=== PATIENT | male | born 1945 | race Caucasian/White ===

== ENCOUNTER 2018-03-03 13:13 | Emergency (ER) | payer MEDICARE, BC ==
[~2018-03-03] VITALS: Ht 180.3 cm; Wt 128.0 kg
[2018-03-03 13:40] LABS: BASOPHILS % (AUTO) 0.1 % (0-1); EOSINOPHILS # (AUTO) 0.3 X10'3 (0-0.9); EOSINOPHILS % (AUTO) 4.6 % (0-6); HEMATOCRIT 40.2 % (42.0-52.0); HEMOGLOBIN 14.1 g/dl (14.0-17.9); LYMPHOCYTES # (AUTO) 0.6 X10'3 (1.1-4.8); LYMPHOCYTES % (AUTO) 9.2 % (21-51); MEAN CORPUSCULAR HEMOGLOBIN 32.4 PG (27.0-31.0); MEAN CORPUSCULAR VOLUME 92.8 FL (78-98); MONOCYTES # (AUTO) 0.4 X10'3 (0-0.9); MONOCYTES % (AUTO) 6.2 % (2-12); NEUTROPHILS # (AUTO) 5.2 X10'3 (1.8-7.7); NEUTROPHILS % (AUTO) 79.9 % (42-75); PLATELET COUNT 216 X10'3 (140-440); RED BLOOD COUNT 4.34 X10'6 (4.70-6.10); RED CELL DISTRIBUTION WIDTH 13.4 % (11.5-14.5); WHITE BLOOD COUNT 6.5 X10'3 (4.5-11.0)
[2018-03-03 13:50] LABS: PARTIAL THROMBOPLASTIN TIME 25 SECONDS (22-32)
[2018-03-03 13:56] LABS: ALANINE AMINOTRANSFERASE 38 U/L (12-78); ALBUMIN 3.4 G/DL (3.4-5.0); ALBUMIN/GLOBULIN RATIO 0.9 (1.1-1.5); ALKALINE PHOSPHATASE 78 IU/L (46-116); ANION GAP 8 (8-16); ASPARTATE AMINO TRANSFERASE 21 U/L (10-37); BILIRUBIN,TOTAL 0.3 MG/DL (0.1-1.0); BLOOD UREA NITROGEN 32 MG/DL (7-18); BUN/CREATININE RATIO 22.5 (5.4-32.0); CALCIUM 9.4 MG/DL (8.5-10.1); CHLORIDE 104 MMOL/L (99-107); CREATININE 1.42 MG/DL (0.60-1.10); GLUCOSE 234 MG/DL (70-104); POTASSIUM 4.3 MMOL/L (3.5-5.1); SODIUM 141 MMOL/L (135-145); TOTAL CARBON DIOXIDE 28.9 MMOL/L (24-32); TOTAL PROTEIN 7.3 G/DL (6.4-8.2); eGFR 49 ML/MIN
[2018-03-03] MEDS ORDERED: AZIT-57 PO (17:56)
[2018-03-03 18:24] VITALS: BP 165/59
== END 2018-03-03 18:26 | disposition home or self-care (01) ==
LOC: ER 13:14
DX: R07.9 Chest pain, unspecified (principal); M25.512 Pain in left shoulder; J18.9 Pneumonia, unspecified organism; I11.0 Hypertensive heart disease with heart failure; I50.9 Heart failure, unspecified; E11.9 Type 2 diabetes mellitus without complications; E78.00 Pure hypercholesterolemia, unspecified; Z88.8 Allergy status to other drugs, medicaments and biological substances
CPT/HCPCS: 36415; 71045; 80053; 84484; 85025; 85610; 85730; 93005; 99285

== ENCOUNTER 2020-05-29 12:52 | Emergency (ER) | payer MEDICARE, BC ==
[~2020-05-29] VITALS: Ht 182.9 cm; Wt 125.0 kg
--- NOTE | 2020-05-29 13:28 | NUR ---
Pt O2 was decreased from 6 L NRB to 4 L NC at 1315. Pt has maintained SpO2 >92% on 4 L with no s/sx of respiratory distress or increased work of breathing. Will continue to monitor Pt.
--- NOTE | 2020-05-29 13:45 | NUR ---
Pt continues to maintain SpO2 >92% on 4 L, no evidence of respiratory distress. O2 decreased to 3 L NC. Will reassess Pt tolerance.
[2020-05-29 13:55] LABS: BASOPHILS # (AUTO) 0.1 X10'3 (0-0.2); BASOPHILS % (AUTO) 1.1 % (0-1); EOSINOPHILS # (AUTO) 0.1 X10'3 (0-0.9); EOSINOPHILS % (AUTO) 1.4 % (0-6); HEMOGLOBIN 8.8 g/dl (14.0-17.9); LYMPHOCYTES # (AUTO) 0.6 X10'3 (1.1-4.8); LYMPHOCYTES % (AUTO) 9.6 % (21-51); MEAN CORPUSCULAR HEMOGLOBIN 30.3 PG (27.0-31.0); MEAN CORPUSCULAR HGB CONC 32.5 g/dL (33.0-36.5); MEAN PLATELET VOLUME 6.4 FL (7.4-10.4); MONOCYTES # (AUTO) 0.8 X10'3 (0-0.9); MONOCYTES % (AUTO) 14.1 % (2-12); NEUTROPHILS # (AUTO) 4.3 X10'3 (1.8-7.7); NEUTROPHILS % (AUTO) 73.8 % (42-75); PLATELET COUNT 457 X10'3 (140-440); RED CELL DISTRIBUTION WIDTH 15.9 % (11.5-14.5); WHITE BLOOD COUNT 5.9 X10'3 (4.5-11.0)
[2020-05-29 14:06] LABS: PARTIAL THROMBOPLASTIN TIME 27 SECONDS (22-32)
[2020-05-29 14:11] LABS: ALANINE AMINOTRANSFERASE 19 U/L (12-78); ALBUMIN 2.6 G/DL (3.4-5.0); ALBUMIN/GLOBULIN RATIO 0.7 (1.1-1.5); ALKALINE PHOSPHATASE 87 IU/L (46-116); ANION GAP 1 (8-16); ASPARTATE AMINO TRANSFERASE 17 U/L (10-37); BILIRUBIN,TOTAL 0.3 MG/DL (0.1-1.0); BLOOD UREA NITROGEN 24 MG/DL (7-18); BUN/CREATININE RATIO 9.1 (5.4-32.0); CHLORIDE 97 MMOL/L (99-107); CREATININE 2.64 MG/DL (0.60-1.10); GLUCOSE 139 MG/DL (70-104); POTASSIUM 4.7 MMOL/L (3.5-5.1); SODIUM 137 MMOL/L (135-145); TOTAL CARBON DIOXIDE 38.8 MMOL/L (24-32); TOTAL PROTEIN 6.4 G/DL (6.4-8.2); eGFR 24 ML/MIN
[2020-05-29 14:26] LABS: TOTAL CELLS COUNTED 200
[2020-05-29 14:27] LABS: HYPOCHROMASIA 1+; PLATELET ESTIMATE INCREASED
[2020-05-29 14:28] LABS: POLYCHROMASIA FEW; STOMATOCYTES 2+
[2020-05-29 14:31] LABS: ELLIPTOCYTES FEW; HOWELL-JOLLY BODIES FEW; SPHEROCYTES FEW; TEAR DROP CELLS FEW
[2020-05-29] MEDS ORDERED: furosemide 10 MG/1 ML 10ml inj IV ONE (14:35)
[2020-05-29 15:34] VITALS: BP 171/78
== END 2020-05-29 15:32 ==
LOC: ER 12:52
DX: E87.79 Other fluid overload (principal); I50.9 Heart failure, unspecified; I11.0 Hypertensive heart disease with heart failure; E78.00 Pure hypercholesterolemia, unspecified; E11.9 Type 2 diabetes mellitus without complications; J44.9 Chronic obstructive pulmonary disease, unspecified; Z72.89 Other problems related to lifestyle; Z88.8 Allergy status to other drugs, medicaments and biological substances; Z87.891 Personal history of nicotine dependence
CPT/HCPCS: 36415; 71045; 80053; 83880; 84484; 85025; 85610; 85730; 93005; 96374; 99285; J1940